=== PATIENT | female | born 1985 | race Asian ===

== ENCOUNTER 2017-07-24 16:34 | Emergency (ER) | payer MEDICAID ==
[~2017-07-24] VITALS: Ht 152.4 cm; Wt 41.7 kg
[2017-07-24 16:51] VITALS: Ht 152.4 cm; Wt 41.7 kg
[2017-07-24 17:45] LABS: BASOPHIL % 0.7 % (0-2); RED CELL DISTRIBUTION WIDTH 13.2 % (11.5-14.5)
[2017-07-24 17:52] LABS: PLATELET COUNT 570 x10^3mcL (130-400)
[2017-07-24 17:56] LABS: CALCIUM 9.5 mg/dL (8.5-10.1); CARBON DIOXIDE 30.6 mmol/L (21-32); CHLORIDE SERUM 100 mmol/L (98-107); CREATININE SERUM 0.8 mg/dL (0.6-1.0); GFR1 > 60 mL/min; GLUCOSE SERUM 149 mg/dL (74-106); POTASSIUM SERUM 3.8 mmol/L (3.5-5.1); SODIUM SERUM 137 mmol/L (136-145)
[2017-07-24 18:01] LABS: ALKALINE PHOSPHATASE 106 U/L (46-116); ALT/SGPT 37 U/L (14-59); AST/SGOT 17 U/L (15-37); BILIRUBIN TOTAL 0.1 mg/dL (0.20-1.00); TOTAL PROTEIN, SERUM 8.1 g/dL (6.4-8.2)
[2017-07-24 18:02] LABS: ALBUMIN 3.2 g/dL (3.4-5.0)
[2017-07-24 19:14] VITALS: BP 116/75
== END 2017-07-24 19:14 | disposition home or self-care (01) ==
LOC: ED 16:34
PROVIDERS: Emergency Medicine
DX: G44.209 Tension-type headache, unspecified, not intractable (principal)
CPT/HCPCS: 36415; J0780; J1885